=== PATIENT | female | born 1995 | race Two or more races ===

== ENCOUNTER 2025-04-02 20:22 | Emergency (ER) | payer BC, OTHER ==
[~2025-04-02] VITALS: Ht 154.9 cm; Wt 75.1 kg
[2025-04-02 21:12] VITALS: BP 107/76; PULSE 90; RESP 17; TEMP 99.9; O2SAT 98
[2025-04-02] MEDS: SODIUM CHLORIDE 0.9% 1,000 ML IV ONE (21:12)
[2025-04-02] MEDS: ONDANSETRON HCL 4 MG/2 ML VIAL IV ONE (21:12)
== END 2025-04-02 21:36 | disposition left against medical advice (07) ==
LOC: ER 20:22
DX: R10.30 Lower abdominal pain, unspecified (principal); Z53.21 Procedure and treatment not carried out due to patient leaving prior to being seen by health care provider